=== PATIENT | male | born 1960 | race Caucasian/White ===

== ENCOUNTER 2017-03-20 09:50 | Day surgery (SDC) | payer OTHER ==
[~2017-03-20] VITALS: Ht 172.7 cm; Wt 85.0 kg
[~2017-03-20 09:50] MED LIST: ANALGESIC325 M1 PO; ASPIRIN325 MG PO; CRESTOR40 MG PO; ISOSORBIDE MONO60 MG PO; LEXAPRO20 MG PO; MELOXICAM15 MG PO; METOPROLOL SUCC50 MG PO; NEXIUM40 MG PO; NITROLINGUAL S4.9 GM MM; OXYCODONE HCL15 MG PO; Percocet 7.5/325,End PO; TIZANIDINE HCL4 MG PO; TOPROL XL100 MG PO; TRILIPIX135 MG PO; TYLOX1 CAPSULE PO; VITAMIN D35000 UNIT PO
== END 2017-03-20 18:40 | disposition home or self-care (01) ==
LOC: CATH 09:50
DX: I25.110 Atherosclerotic heart disease of native coronary artery with unstable angina pectoris (principal); I25.82 Chronic total occlusion of coronary artery; I10 Essential (primary) hypertension; E78.5 Hyperlipidemia, unspecified; I25.2 Old myocardial infarction; Z86.73 Personal history of transient ischemic attack (TIA), and cerebral infarction without residual deficits; Z95.1 Presence of aortocoronary bypass graft; Z87.891 Personal history of nicotine dependence; Z79.82 Long term (current) use of aspirin
CPT/HCPCS: C1769; C1887; C1894; J1200; J1644; J2250; J3010